=== PATIENT | male | born 1960 | race Caucasian/White ===

== ENCOUNTER 2021-11-04 01:37 | Emergency (ER) | payer BC ==
[2021-11-04] MEDS ORDERED: Ketorolac 15 MG/ML SDV IVPUSH ONE ×2 (02:14→03:23)
[2021-11-04] MEDS ORDERED: Morphine 4 MG/ML Syringe IVPUSH ONE (02:15)
[2021-11-04] MEDS ORDERED: Morphine 2 MG/ML SYRINGE IVPUSH ONE (03:23)
== END 2021-11-04 03:39 | disposition home or self-care (01) ==
LOC: JD.ED 01:37
DX: M54.6 Pain in thoracic spine (principal); E11.9 Type 2 diabetes mellitus without complications; E78.00 Pure hypercholesterolemia, unspecified; Z79.84 Long term (current) use of oral hypoglycemic drugs; Z79.899 Other long term (current) drug therapy
CPT/HCPCS: 36415; 71045; 80048; 85025; 96374; 96375; 96376; 99283; J1885; J2270

== ENCOUNTER 2021-11-04 18:32 | Emergency (ER) | payer BC ==
[2021-11-04] MEDS ORDERED: HYDROmorphone 1 MG/ML Syringe IM ONE (19:05)
[2021-11-04] MEDS ORDERED: HYDROmorphone 0.5 MG/0.5 ML Syringe IM ONE (20:55)
== END 2021-11-04 21:06 | disposition home or self-care (01) ==
LOC: JD.ED 18:32
DX: M54.6 Pain in thoracic spine (principal); G89.29 Other chronic pain; E78.00 Pure hypercholesterolemia, unspecified; E11.9 Type 2 diabetes mellitus without complications; Z86.16 Personal history of COVID-19; Z79.899 Other long term (current) drug therapy
CPT/HCPCS: 96372; 99283; J1170